=== PATIENT | male | born 1950 | race Caucasian/White ===

== ENCOUNTER 2018-10-13 09:36 | Emergency (ER) | payer MEDICARE, OTHER ==
[2018-10-13 09:45] VITALS: BP 149/97
--- NOTE | 2018-10-13 10:15 | UC ---
Skin Complaint HPI - HPI Summary HPI Summary: 68-year-old male with a history of GERD/depression presents with concern after removing a tick from his body. He estimates that this was in place for 1 week. The tick wasn't engorged. He denies any fever, joint aches, numbness/ weakness or other symptoms. He's had some minor redness in the area which she felt was a spider bite at the time. He removed the tick and hold this morning. The tick was brought to the ER and is identified as a deer tick. - History of Current Complaint Chief Complaint: UCSkin Time Seen by Provider: 10/13/18 10:02 Stated Complaint: TICK Hx Obtained From: Patient Pain Intensity: 0 - Allergy/Home Medications Allergies/Adverse Reactions: Allergies Allergy/AdvReac Type Severity Reaction Status Date / Time Penicillins Allergy Headache Verified 10/13/18 09:45 Home Medications: Home Medications Gabapentin 300 mg PO DAILY WITH MEAL 10/13/18 [History Confirmed 10/13/18] Lansoprazole [Prevacid] 30 mg PO DAILY WITH MEAL 10/13/18 [History Confirmed ] PMH/Surg Hx/FS Hx/Imm Hx GI/ History: Gastroesophageal Reflux Psychological History: Depression - Or - Surgical History Surgical History: Yes Surgery Procedure, Year, and Place: left rotator cuff surgery 03/24/12 - Family History Known Family History: Positive: Non-Contributory - Social History Lives: With Family Alcohol Use: Daily Substance Use Type: None Smoking Status (MU): Former Smoker - Immunization History Most Recent Tetanus Shot: 186lb Review of Systems All Other Systems Reviewed And Are Negative: Yes Constitutional: Negative: Fever Skin: Negative: Rash, Bruising ENT: Positive: Negative Cardiovascular: Positive: Negative Motor: Positive: Negative Musculoskeletal: Negative: Arthralgia Physical Exam Triage Information Reviewed: Yes Appearance: Well-Appearing, No Pain Distress, Well-Nourished Vital Signs: Initial Vital Signs Temp 97.1 F 10/13/18 09:41 Pulse 60 10/13/18 09:41 Resp 18 10/13/18 09:41 BP 149/97 10/13/18 09:41 Pulse Ox 100 10/13/18 09:41 ENT: Positive: Pharynx normal Neck: Positive: Supple Respiratory: Positive: Lungs clear Cardiovascular: Positive: RRR Musculoskeletal: Positive: ROM Intact Neurological: Positive: Alert Skin Exam: Other - 1.5cm indurated erythema in the post axillary line on the Left. Tick has been fully removed. No surrounding rash. Course/Dx - Course Course Of Treatment: Lyme testing drawn. Rx doxy x 2wks. Louise tick confirmed. BP elevated. - Differential Diagnoses - Skin Complaint Differential Diagnoses: Other - lyme, tick bite, erlichiosis - Diagnoses Provider Diagnosis: Tick bite of chest wall, Elevated blood pressure reading Discharge - Sign-Out/Discharge Documenting (check all that apply): Patient Departure All imaging exams completed and their final reports reviewed: No Studies - Discharge Plan Condition: Improved Disposition: HOME Prescriptions: DOXYcycline CAP(*) [DOXYcycline 100MG CAP(*)] 100 mg PO BID #28 cap Patient Education Materials: Lyme Disease (ED), Tick Bite (ED) Referrals: Sha Ramirez MD [Primary Care Provider] - Additional Instructions: We will call you with positive Lyme disease testing. Return with fever, joint aches, worse or other concerns. Call your doctor today to schedule prompt follow-up. Have your doctor recheck your blood pressure within 1wk. - Billing Disposition and Condition Condition: IMPROVED Disposition: Home
[2018-10-15 20:25] LABS: B garinii/B afzelii PCR Negative (Negative); B mayonii PCR Negative (Negative)
== END 2018-10-13 10:45 | disposition home or self-care (01) ==
LOC: UCEAST 09:36
DX: S40.862A Insect bite (nonvenomous) of left upper arm, initial encounter (principal); W57.XXXA Bitten or stung by nonvenomous insect and other nonvenomous arthropods, initial encounter; Y92.9 Unspecified place or not applicable; R03.0 Elevated blood-pressure reading, without diagnosis of hypertension; K21.9 Gastro-esophageal reflux disease without esophagitis; F32.9 Major depressive disorder, single episode, unspecified; Z88.0 Allergy status to penicillin; Z87.891 Personal history of nicotine dependence
CPT/HCPCS: 87476; 87798; 99212; G0463